=== PATIENT | male | born 1985 | race Caucasian/White ===

== ENCOUNTER 2019-03-21 17:37 | Emergency (ER) | payer OTHER ==
[~2019-03-21] VITALS: Ht 193 cm; Wt 97.7 kg
[2019-03-21] MEDS ORDERED: KETOROLAC 60 MG/2 ML VIAL (J1885) IM ONE (18:00)
[2019-03-21 18:18] VITALS: BP 140/78
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
== END 2019-03-21 18:56 | disposition home or self-care (01) ==
LOC: M ED 17:37 → EDBD 17:37 → M ED 18:56
DX: S70.02XA Contusion of left hip, initial encounter (principal); V23.4XXA Motorcycle driver injured in collision with car, pick-up truck or van in traffic accident, initial encounter; Y92.410 Unspecified street and highway as the place of occurrence of the external cause
CPT/HCPCS: 73502; 96372; 99284; J1885